=== PATIENT | male | born 1975 | race Caucasian/White ===

== ENCOUNTER 2018-08-01 18:55 | Emergency (ER) | payer BC ==
[2018-08-01 19:37] VITALS: BP 131/83
[2018-08-01] MEDS ORDERED: Albuterol/Ipratropium NEB.SOL* Albuterol 2.5 MG/Ipratropium 0.5 MG 3 ML INH ONE (20:14)
[2018-08-01] MEDS ORDERED: Azithromycin TAB* 250 MG PO ONE (20:14)
[2018-08-01] MEDS ORDERED: Albuterol HFA INHALER* 8 gm MDI INH ONE (20:15)
--- NOTE | 2018-08-01 20:16 | UC ---
Respiratory Complaint HPI - HPI Summary HPI Summary: Approaching 10 days of cough chest rattling sore throat, no fevers, smoker and works doing bridge construction - History of Current Complaint Chief Complaint: UCGeneralIllness Stated Complaint: CONGESTION AND COUGHING Time Seen by Provider: 08/01/18 20:06 Hx Obtained From: Patient Onset/Duration: Sudden Onset, Lasting Days - 10, Still Present Timing: Constant Pain Intensity: 5 Pain Scale Used: 0-10 Numeric Character: Cough: Productive Aggravating Factors: Allergens, Exertion, Deep Breaths, Recumbent Position Alleviating Factors: Nothing Associated Signs And Symptoms: Positive: Pleuritic Chest Pain, URI - Allergies/Home Medications Allergies/Adverse Reactions: Allergies Allergy/AdvReac Type Severity Reaction Status Date / Time No Known Allergies Allergy Verified 08/01/18 19:34 Home Medications: Home Medications D-Methorphan/PE/Acetaminophen [[place] Plus Day Col] 1 cap PO ONCE [History Confirmed 08/01/18] PMH/Surg Hx/FS Hx/Imm Hx Previously Healthy: Yes - Surgical History Surgical History: Yes Surgery Procedure, Year, and Place: left thumb tendon repair - Family History Known Family History: Positive: None - Social History Occupation: Employed Full-time Alcohol Use: Occasionally Substance Use Type: Marijuana Substance Use Comment - Amount & Last Used: daily Smoking Status (MU): Current Every Day Smoker Type: Cigarettes Review of Systems Constitutional: Negative Skin: Negative Eyes: Negative ENT: Sore Throat Respiratory: Cough Cardiovascular: Negative Gastrointestinal: Negative Genitourinary: Negative Motor: Negative Neurovascular: Negative Musculoskeletal: Negative Neurological: Negative Psychological: Negative Is Patient Immunocompromised?: No All Other Systems Reviewed And Are Negative: Yes Physical Exam Triage Information Reviewed: Yes Appearance: No Pain Distress, Well-Nourished, Ill-Appearing Vital Signs: Initial Vital Signs Temp 99.5 F 08/01/18 19:30 Pulse 107 08/01/18 19:30 Resp 15 08/01/18 19:30 BP 131/83 08/01/18 19:30 Pulse Ox 98 08/01/18 19:30 Vital Signs Reviewed: Yes Eye Exam: Normal Eyes: Positive: Conjunctiva Clear ENT: Positive: Normal ENT inspection, Hearing grossly normal, Pharynx normal, Nasal congestion, TMs normal, Uvula midline. Negative: Tonsillar swelling, Tonsillar exudate, Trismus, Muffled voice, Hoarse voice, Dental tenderness, Sinus tenderness Dental Exam: Normal Neck exam: Normal Neck: Positive: Supple, Nontender, No Lymphadenopathy Respiratory Exam: Other Respiratory: Positive: Chest non-tender, No respiratory distress, No accessory muscle use, Wheezing - right upper and lower lobes Cardiovascular Exam: Normal Cardiovascular: Positive: RRR, No Murmur, Pulses Normal, Brisk Capillary Refill Musculoskeletal Exam: Normal Musculoskeletal: Positive: Strength Intact, ROM Intact, No Edema Neurological Exam: Normal Neurological: Positive: Alert, Muscle Tone Normal Psychological Exam: Normal Skin Exam: Normal UC Diagnostic Evaluation - Laboratory O2 Sat by Pulse Oximetry: 98 Re-Evaluation - Re-Evaluation First Eval Change: Improved - increase airmovement and feels better after neb Respiratory Course/Dx - Course Course Of Treatment: nicotine cesasation information and encouragement, zithromax, albuterol, prednisone follow with pcp - Differential Dx/Diagnosis Provider Diagnoses: bronchitis with acute exacerbation of bronchospasm, nicotine dependant Discharge - Sign-Out/Discharge Documenting (check all that apply): Patient Departure All imaging exams completed and their final reports reviewed: No Studies - Discharge Plan Condition: Stable Disposition: HOME Prescriptions: Azithromycin TAB* [Zithromax TAB (Z-ALEXIA) 250 mg #6 tabs] 250 mg PO DAILY #4 tab predniSONE [Prednisone 20 MG TAB] 20 mg PO QAM #15 tablet Patient Education Materials: How to Stop Smoking (ED), Acute Bronchitis (ED), Bronchospasm (ED), How to Use a Metered-Dose Inhaler and a Spacer (ED) Referrals: Estee Ramsey PA [Primary Care Provider] - - Billing Disposition and Condition Condition: STABLE Disposition: Home
== END 2018-08-01 20:44 | disposition home or self-care (01) ==
LOC: UCCORT 18:55
CPT/HCPCS: 99203; A9270-GY; G0463

== ENCOUNTER 2018-11-21 07:45 | Emergency (ER) | payer BC ==
--- OUTSIDE RECORDS SUMMARY | 2018-11-21 07:54 | XMS REPORT | Continuity of Care Document ---
:1975 External Reference #:[id number] Author Name Khoa Garcia M.D. Address [address] [place] [address] Care Team Providers Name Role Phone Khoa Garcia M.D. Care Team Information Finish Carpenter Unavailable Payers Type Date Identification Numbers Payment Provider Subscriber Policy Number: [id number] [place]- Ppo Sophia Stahl PayID: [id number] [address] [address] [place] [address] Advance Directives Description No Information Available Problems Description No Information Family History Date Family Member(s) Problem(s) Comments : (age 85 Years) Father due to Alzheimer's Disease Mother Diabetes Mellitus Type 2 Mother Congestive Heart Failure Social History Type Date Description Comments Sex Unknown ETOH Use Rarely consumes alcohol Tobacco Use Reviewed: 11/17/18 Heavy tobacco smoker 2 pks a day now down (more than 10 to less than one. cigarettes/day) Recreational Drug Use Current Drug User Methanphetamines. Holidays time. Smoking Status Reviewed: 11/17/18 Heavy tobacco smoker 2 pks a day now down (more than 10 to less than one. cigarettes/day) Allergies, Adverse Reactions, Alerts Description No Known Drug Allergies Medications Description No Information Immunizations Description No Information Available Vital Signs Date Vital Result Comment 11/17/2018 3:07pm Weight 192.00 lb BP Systolic 122 mmHg BP Diastolic 74 mmHg Height 71.75 inches 5'11.75" BMI (Body Mass Index) 26.2 kg/m2 Results Description No Information Available Procedures Description No Information Available Encounters Type Date Location Provider Dx Diagnosis Office Visit 11/17/2018 Main Office Khoa Garcia, Z00.01 Encounter for 2:30p M.DOswaldo general adult medical exam w abnormal findings F41.9 Anxiety disorder, unspecified Plan of Treatment 11/17/2018 - Khoa Garcia M.D.Z00.01 Encounter for general adult medical examination with abnormal findingsNew Labs:Lipid Panel, Ordered: 11/17/18CBC No Diff, Ordered: 11/17/18Follow up:1 [id number] Anxiety disorder, unspecifiedNew Labs:CMP, Ordered: 11/17/18TSH Thyroid Stimulating Horm, Ordered: Vitamin D, 25 Hydroxy Mass/Vol, Ordered: 11/17/18
--- NOTE | 2018-11-21 08:07 | UC ---
Psychiatric Complaint HPI - HPI Summary HPI Summary: Patient is 43 year old gentleman , who present today to the urgent care with insomnia for past week. He reports that he has slept for about 10 hours in past week. Last night maiy slept for 4 hours. He saw his PCP on 11/17/18, was diagnosed with anxiety, and prescribed citalopram 10mg daily. He has not started medication as his mother is hospitalized . He feels very tired and is also stressed due to lack of sleep. He is nervous about non-specific side effects and is afraid to start the medication. Denies any fever, chills, cough chest pain or shortness of breath . Denies any abdominal pain , nausea or vomiting , diarrhea or constipation. - History Of Current Complaint Chief Complaint: UCPsych Stated Complaint: ANXIETY-MED CONCERN Time Seen by Provider: 11/21/18 07:56 Hx Obtained From: Patient - Allergies/Home Medications Allergies/Adverse Reactions: Allergies Allergy/AdvReac Type Severity Reaction Status Date / Time No Known Allergies Allergy Verified 11/21/18 07:57 Home Medications: Home Medications Citalopram TAB* [CeleXA TAB*] 10 mg PO DAILY 11/21/18 [History Confirmed ] PMH/Surg Hx/FS Hx/Imm Hx - Additional Past Medical History Additional PMH: Anxiety Blood in urine 3 years ago- resolved Previously Healthy: Yes - Surgical History Surgical History: Yes Surgery Procedure, Year, and Place: left thumb tendon repair - Family History Known Family History: Positive: None - Social History Alcohol Use: Rare Substance Use Type: Marijuana Substance Use Comment - Amount & Last Used: Daily Smoking Status (MU): Heavy Every Day Tobacco Smoker Type: Cigarettes Amount Used/How Often: 1 - 1 1/2 PPD Length of Time of Smoking/Using Tobacco: Since Age 19 Review of Systems All Other Systems Reviewed And Are Negative: Yes Constitutional: Positive: Negative Skin: Positive: Negative Eyes: Positive: Negative ENT: Positive: Negative Respiratory: Positive: Negative Cardiovascular: Positive: Negative Gastrointestinal: Positive: Negative Genitourinary: Positive: Negative Motor: Positive: Negative Neurovascular: Positive: Negative Musculoskeletal: Positive: Negative Neurological: Positive: Other - lack of sleep Psychological: Positive: Anxious Is Patient Immunocompromised?: No Physical Exam - Summary Physical Exam Summary: Physical Exam: Const: Appears well. No signs of apparent distress present. Alert and oriented x 3. Musculo: Walks with a normal gait. Head/Face: Atraumatic, normocephalic on inspection. Eyes: EOMI and PERRLA in both eyes. Conjunctivae clear. No discharge noted ENT: Hearing normal Respiratory: Respirations are unlabored. Lungs clear to auscultation bilaterally, no wheezing , rhonchi or rales noted . CVS: Regular rate and Rhythm, S1S2 normal , no murmurs identified. Extremities: Peripheral circulation is grossly normal. Pulses 2+ Abdomen : Soft non tender , nondistended , Bowel sounds present . Skin: No lesions or rash located on the upper extremities or on the lower extremities. Neuro: Cranial nerves II to XII intact, motor and sensory intact. DTR Intact bilaterally. Mood is normal. Affect is normal. Triage Information Reviewed: Yes Vital Signs: Initial Vital Signs Temp 97.6 F 11/21/18 07:55 Pulse 91 11/21/18 07:55 Resp 16 11/21/18 07:55 BP 138/87 11/21/18 07:55 Pulse Ox 98 11/21/18 07:55 Vital Signs Reviewed: Yes Psych Complaint Course/Dx - Course Course Of Treatment: During the visit today, we discussed the possible side effects of citalopram- neurologic , gastrointestinal, dermatologic and cardiac - prolongation of QTC. There is 15% risk of insomnia with citalopram . So, we discussed options and plan to regulate his sleep cycle and plan to hold off citalopram for now and treat his insomnia with ambien. I will prescribe the medication to the pharmacy . He will follow up with his PCP in 2 to 3 days to discuss initiating citalopram . Patient expressed understanding . - Differential Dx/Diagnosis Provider Diagnosis: Insomnia, Anxiety Discharge - Sign-Out/Discharge Documenting (check all that apply): Patient Departure All imaging exams completed and their final reports reviewed: No Studies - Discharge Plan Condition: Stable Disposition: HOME Prescriptions: Zolpidem Tartrate [Ambien] 10 mg PO BEDTIME 5 Days #5 tablet MDD 1 tab Patient Education Materials: Insomnia (ED), Anxiety (ED) Referrals: Khoa Garcia MD [Primary Care Provider] - 2 Days Additional Instructions: Please start taking the medication as prescribed to the pharmacy . Take it before bed time. Hold off citalopram for now. Follow up with your primary care doctor in 2 days and discuss about starting citalopram . Patients blood pressure slightly high in Urgent care today , plan follow up with PCP for better control Return to Urgent care / ER if symptoms get worse. - Billing Disposition and Condition Condition: STABLE Disposition: Home
[2018-11-21 08:41] VITALS: BP 120/71
== END 2018-11-21 08:41 | disposition home or self-care (01) ==
LOC: UCCORT 07:45
DX: G47.00 Insomnia, unspecified (principal); F41.9 Anxiety disorder, unspecified; F17.210 Nicotine dependence, cigarettes, uncomplicated
CPT/HCPCS: 99212; G0463